=== PATIENT | female | born 1965 | race Caucasian/White ===

== ENCOUNTER 2021-08-22 18:35 | Emergency (ER) | payer MEDICAID, SELFPAY ==
[2021-08-22 18:38] VITALS: BP 159/78; PULSE 82; RESP 22; TEMP 36.7; O2SAT 96; BMI 41.1
--- NOTE | 2021-08-22 19:13 | CRLHL7_ITS ---
For Patients: As a result of the Century Cures Act, medical imaging exams and procedure reports are released immediately into your electronic medical record. You may view this report before your referring provider. If you have questions, please contact your health care provider. INDICATION: Pain left lower quadrant COMPARISON: None TECHNIQUE: CT examination of the abdomen and pelvis was performed without intravenous contrast. Thin section axial images were obtained from the lung bases through the pubic symphysis. Oral contrast was not administered. Please note that all CT scans at this facility use dose modulation, iterative reconstruction, and/or weight-based dosing when appropriate to reduce radiation dose to as low as reasonably achievable. FINDINGS: LUNG BASES: Atelectasis or scarring at the lung bases.Heart size normal and the lung bases LIVER/BILIARY SYSTEM:Enlarged fatty infiltrated liver. Sparing of the gallbladder fossa. Normal appearing gallbladder. 1.3 centimeters cyst inferiorly in the right lobe. ADRENALS: Normal non-contrast appearance KIDNEYS, URETERS and BLADDER:The kidneys are normal in size. There are no intrarenal calculi. A cyst measuring 3.2 centimeters is noted in the lower pole on the left. Mild left hydronephrosis and left hydroureter is noted. This due to a 3 millimeter calcified calculus in the mid to distal ureter located at about L4-L5. The bladder appears normal. SPLEEN:Normal non-contrast appearance. PANCREAS: Normal non-contrast appearance. RETROPERITONEUM and MESENTERY: There is no mass, adenopathy or aortic aneurysm. Atherosclerotic vascular calcifications GASTROINTESTINAL SYSTEM: There is no evidence of diverticulitis, colitis, mechanical obstruction, or appendicitis. The small bowel as visualized appears normal.Scattered diverticulosis PELVIS: No acute appearing finding. OSSEOUS STRUCTURES and ABDOMINAL WALL: Degenerative changes and scoliosis. Mild body wall edema OTHER: No free fluid or free air. IMPRESSION: 1. Left-sided obstructive uropathy due to a 3 millimeter calcified calculus in the mid to distal left ureter located at about L4-L5. No intrarenal calculi on either side. 2. Incidental nonacute appearing findings as discussed in the body of the report. Please note that all CT scans at this facility use dose modulation, iterative reconstruction, and/or weight-based dosing when appropriate to reduce radiation dose to as low as reasonably achievable. Dictated by Venancio Khoury MD @ 08/22/2021 8:44:51 PM (Electronically Signed)
[2021-08-22 19:46] VITALS: BP 126/64; PULSE 62; RESP 18; O2SAT 98
[2021-08-22] MEDS: 0.9 % SODIUM CHLORIDE 1000 ml 1,000 ML IV ×2 (19:47→21:09)
[2021-08-22] MEDS: ONDANSETRON 2 MG/ML inj 4 MG IVP (19:47)
[2021-08-22] MEDS: MORPHINE 4 MG/ML INJ IVP (19:47)
[2021-08-22 19:52] LABS: Basophils Absolute Auto 0.02 K/uL (0.00-0.30); Basophils Percent Auto 0.3 % (0.0-3.0); Eosinophils Absolute Auto 0.09 K/uL (0.00-0.50); Eosinophils Percent Auto 1.4 % (0.0-7.0); Hematocrit 39.7 % (33.0-51.0); Immature Granulocytes Abs Auto 0.01 K/uL (0.00-0.30); Mean Corpuscular HGB Conc 33 gm/dL (32-36); Mean Corpuscular Hemoglobin 29 pg (26-34); Mean Corpuscular Volume 89 fL (80-100); Monocytes Percent Auto 12.9 % (0.0-11.0); Neutrophils Percent Auto 66.2 % (42.0-72.0); Platelet Count* 154 K/uL (140-440); RDW Coefficient of Variation % 13.2 % (11.5-15.5); Red Blood Count 4.46 m/uL (4.00-5.20); White Blood Count* 6.49 K/uL (4.50-11.00)
[2021-08-22 20:00] VITALS: BP 123/69; PULSE 64; RESP 18; O2SAT 96
[2021-08-22 20:07] LABS: Albumin* 4.1 g/dL (3.3-5.0); Chloride* 105 mmol/L (96-114); Sodium* 138 mmol/L (135-149)
[2021-08-22 20:08] LABS: Potassium* 3.8 mmol/L (3.6-5.1)
[2021-08-22 20:10] LABS: Carbon Dioxide* 25 mmol/L (20-32); Est. Creatinine Clearance* 32.06; Estimated Glomerular Filt Rate 28.96
[2021-08-22 20:11] LABS: Alanine Aminotransferase* 45 U/L (4-35); Alkaline Phosphatase* 84 U/L (40-150); Aspartate Amino Transferase* 32 U/L (12-35); Bilirubin Direct* 0.5 mg/dL (0.0-0.5); Bilirubin Total* 0.8 mg/dL (0.1-1.5); Blood Urea Nitrogen* 17 mg/dL (7-30); Calcium* 8.8 mg/dL (8.4-10.6); Glucose* 111 mg/dL (60-115); Total Protein* 7.2 g/dL (6.0-8.3)
[2021-08-22 20:25] LABS: C Reactive Protein* 15.1 mg/dL (0.5-1.0)
[2021-08-22 20:30] VITALS: BP 113/62; PULSE 59; RESP 16; O2SAT 96
[2021-08-22 20:43] LABS: SARS PCR* Negative SARS-CoV-2 (Negative)
[2021-08-22 20:46] LABS: Lipase* 67 U/L (23-300)
[2021-08-22 20:57] LABS: Appearance Urine Clear (Clear); Bilirubin Urine 1+ (Negative); Blood Urine Negative (Negative); Glucose Urine Negative (Negative); Ketones Urine 1+ (Negative); Leukocyte Esterase Urine Negative (Negative); Nitrite Urine Negative (Negative); Protein Urine Negative (Negative); Specific Gravity Urine 1.025 (1.000-1.030)
[2021-08-22 20:59] LABS: Color Urine Dark Yellow (Yellow)
[2021-08-22] MEDS: KETOROLAC 15 MG/ML inj IVP (21:09)
[2021-08-22 22:30] VITALS: BP 129/76; PULSE 64; RESP 18; O2SAT 97
[2021-08-23 05:27] LABS: Slide Review Reflex No
--- NOTE | 2021-08-23 16:10 | ED.ABDPAIN ---
HPI - Abdominal Pain General Chief Complaint: Abdominal Pain Stated Complaint: Possible Bowel Obstruction Time Seen by Provider: 08/22/21 18:36 Source: patient, RN notes reviewed and old records reviewed Mode of arrival: ambulatory Limitations: no limitations History of Present Illness HPI narrative: 56-year-old woman presenting to the emergency department with complaint of abdominal pain. Four days ago was in emergency department in [facility] with a vomiting illness. Possible food ingestion. However no identifiable food apparently. Nobody else apparently sick. Reportedly x-ray was unremarkable along with normal lab evaluation. Was treated with IV fluids and antiemetics. did not notice the left mid abdominal pain which brings her here today at that time. She has not had any dysuria or frequency urgency or hematuria. Diagnosis again 4 days ago I believe was ?severe emesis and dehydration? at 1 point she does describe a little blood early on with the vomiting. This pain now involving today is throbbing. Not so much crampy. Indicates deep in the left posterior lateral abdomen. No fever. No rashes noted. Last bowel movement was 3 days ago. She was given dicyclomine and Zofran and acetaminophen -- given the pain that she is feeling now she would normally start taking acetaminophen. Would probably helpful. She would like some pain relief. In [facility] visiting colleges with her daughters. Of particular distress though appears to be some degree of abdominal distension. She says not usually like this. His indicating her mid abdomen being swollen. Surgeries positive for umbilical herniorrhaphy. Record for past medical updated. Family history is apparently without kidney stones. Related Data Previous Rx's Medication Instructions Recorded tamsulosin 0.4 mg capsule (Flomax) 0.4 mg PO DAILY #15 cap 08/22/21 Allergies Allergy/AdvReac Type Severity Reaction Status Date / Time No Known Drug Allergies Allergy Verified 08/22/21 18:54 Review of Systems Status of ROS Reports: 10 or more systems reviewed and unremarkable except as noted in History and below PFSH PFSH Medical History Hernia Hypertension Surgical History H/O cosmetic surgery History of umbilical hernia repair No significant past surgical history Social History Smoking Status: Former smoker Do you use any of these nicotine containing products: None Second hand tobacco smoke exposure: No How often do you have a drink containing alcohol: monthly or less How many standard drinks containing alcohol do you have on a typical day: 1 or 2 How often do you have six or more drinks on one occasion: Never AUDIT-C Alcohol total score: 1 Non-prescribed substance use: denies use service: No Exam Narrative: Exam Narrative: Ambulates easily into the emergency department. Appears generally a little uncomfortable. Not demonstrating tremendous pain. Subtly labored in her breathing. Skin is warm and dry. No rashes apparent. Bruise on the right upper volar forearm consistent with IV placement. HEENT-Oropharynx is a little sticky. Lungs-clear. Equal expansion excursion. Back-no flank pain. CV-RRR no MRG. A little distant. Abdomen is overweight soft. Does seem mildly distended. tender across the mid abdomen. No peritoneal signs. Tympanitic in the mid abdomen. Extremities-moving all extremities without difficulty. No edema. Well perfused peripherally. Const: Vital Signs, click to edit/add: Vital Signs - 24 hr 08/22/21 18:38 08/22/21 19:46 08/22/21 20:00 Temperature 98.1 F Pulse Rate [Pulse Oximeter] 82 62 64 Respiratory Rate 22 18 18 Blood Pressure [Ri ght Upper Arm] 159/78 H 126/64 123/69 Pulse Oximetry 96 98 96 08/22/21 20:30 08/22/21 22:30 Temperature Pulse Rate [Pulse Oximeter] 59 L 64 Respiratory Rate 16 18 Blood Pressure [Ri ght Upper Arm] 113/62 129/76 Pulse Oximetry 96 97 Documenting provider has reviewed patient's vital signs: yes Course Course Hospital Course: This appears to be new pain on top of vomiting illness. I think at this point CT imaging would be warranted. Will recheck labs. Place IV and normal saline. 4 mg of morphine. Morphine did help a good deal with her pain. Labs with CRP of 15.1 and a creatinine of 2. Urinalysis with 1+ ketones otherwise rather unremarkable though also appearance of urobilinogen/bilirubin. CT images were noncontrast reviewed by me. There is some abdominal gas consistent with physical exam though not excessive. As measured by Radiology there is a 3 mm stone in the mid left ureter. noting the ureteral stone was given further 15 mg of ketorolac along with anotherL of normal saline for a total of 2 in setting of increased creatinine Vital Signs Vital signs: Initial Vital Signs Temperature 98.1 F 08/22/21 18:38 Temperature Source Temporal Artery Scan 08/22/21 18:38 Pulse Rate 82 08/22/21 18:38 Pulse Rhythm 08/22/21 18:38 Respiratory Rate 22 08/22/21 18:38 Blood Pressure 159/78 H 08/22/21 18:38 Blood Pressure Mean 105 08/22/21 18:38 Blood Pressure Position Supine 08/22/21 18:38 Pulse Oximetry 96 08/22/21 18:38 Oxygen Delivery Method 08/22/21 18:38 Vital Signs Temperature 98.1 F 08/22/21 18:38 Pulse Rate 82 08/22/21 18:38 Respiratory Rate 22 08/22/21 18:38 Blood Pressure 159/78 H 08/22/21 18:38 Pulse Oximetry 96 08/22/21 18:38 Temperature 98.1 F 08/22/21 18:38 Pulse Rate 64 08/22/21 22:30 Respiratory Rate 18 08/22/21 22:30 Blood Pressure 129/76 08/22/21 22:30 Pulse Oximetry 97 08/22/21 22:30 MDM - Abdominal Pain MDM Narrative Medical decision making narrative: See above I do think the abdominal distension and sees appreciating is partly related to the vomiting illness which seems excessive as described to be explained by a ureteral stone alone. Dehydration likely contributing to elevated creatinine but would encourage followup and recheck next week. I think that her guts have not yet returned to normal. Sounds like might be little constipated as well. In addition to tamsulosin for ureteral colic was given prescriptions for [place] -Percocet has historically made Ms. Rogers nauseated- she does have ondansetron available but probably does not need the full 8 mg per dose as prescribed which might also be further constipating. See discharge instructions for further. Differential Diagnosis Differential diagnosis: Likely abdominal pain, calculus of kidney, constipation, diverticulitis, gastroenteritis, pancreatitis and small bowel obstruction Medical Records Attestation: I reviewed the patient's medical records. Lab Data Attestation: I reviewed the patient's lab results. Labs: Lab Results 07/04/1408/22/21 08/22/21 Range/Units 19:24 19:35 19:35 WBC 6.49 (4.50-11.00) K/uL RBC 4.46 (4.00-5.20) m/uL Hgb 13.0 (12.0-16.0) gm/dL Hct 39.7 (33.0-51.0) % MCV 89 (80-100) fL MCH 29 (26-34) pg MCHC 33 (32-36) gm/dL RDW Coeff of Lavonne 13.2 (11.5-15.5) % Plt Count 154 (140-440) K/uL Neut % (Auto) 66.2 (42.0-72.0) % Lymph % (Auto) 19.0 L (20-44) % Holt % (Auto) 12.9 H (0.0-11.0) % Eos % (Auto) 1.4 (0.0-7.0) % Baso % (Auto) 0.3 (0.0-3.0) % Neut # (Auto) 4.30 (1.7-7.0) K/uL Lymph # (Auto) 1.20 (0.90-2.90) K/uL Holt # (Auto) 0.80 (0.00-0.90) K/UL Eos # (Auto) 0.09 (0.00-0.50) K/uL Baso # (Auto) 0.02 (0.00-0.30) K/uL Abs Immat Gran (auto) 0.01 (0.00-0.30) K/uL Sodium 138 (135-149) mmol/L Potassium 3.8 (3.6-5.1) mmol/L Chloride 105 (96-114) mmol/L Carbon Dioxide 25 (20-32) mmol/L BUN 17 (7-30) mg/dL Creatinine 2.0 H (0.5-1.5) mg/dL Estimated Creat Clear 32.06 Glucose 111 (60-115) mg/dL Calcium 8.8 (8.4-10.6) mg/dL Total Bilirubin 0.8 (0.1-1.5) mg/dL Direct Bilirubin 0.5 (0.0-0.5) mg/dL AST 32 (12-35) U/L ALT 45 H (4-35) U/L Alkaline Phosphatase 84 (40-150) U/L C-Reactive Protein 15.1 H (0.5-1.0) mg/dL Total Protein 7.2 (6.0-8.3) g/dL Albumin 4.1 (3.3-5.0) g/dL Lipase 67 (23-300) U/L Urine Color (Yellow) Urine Appearance (Clear) Urine pH (5.0-8.5) Ur Specific [place] (1.000-1.030) Urine Protein (Negative) Urine Glucose (UA) (Negative) Urine Ketones (Negative) Urine Blood (Negative) Urine Nitrite (Negative) Urine Bilirubin (Negative) Urine Urobilinogen (0.2-1.0) Ur Leukocyte Esterase (Negative) SARS-CoV-2 (PCR) Negative SARS-CoV-2 (Negative) 08/22/21 Range/Units 20:50 WBC (4.50-11.00) K/uL RBC (4.00-5.20) m/uL Hgb (12.0-16.0) gm/dL Hct (33.0-51.0) % MCV (80-100) fL MCH (26-34) pg MCHC (32-36) gm/dL RDW Coeff of Lavonne (11.5-15.5) % Plt Count (140-440) K/uL Neut % (Auto) (42.0-72.0) % Lymph % (Auto) (20-44) % Holt % (Auto) (0.0-11.0) % Eos % (Auto) (0.0-7.0) % Baso % (Auto) (0.0-3.0) % Neut # (Auto) (1.7-7.0) K/uL Lymph # (Auto) (0.90-2.90) K/uL Holt # (Auto) (0.00-0.90) K/UL Eos # (Auto) (0.00-0.50) K/uL Baso # (Auto) (0.00-0.30) K/uL Abs Immat Gran (auto) (0.00-0.30) K/uL Sodium (135-149) mmol/L Potassium (3.6-5.1) mmol/L Chloride (96-114) mmol/L Carbon Dioxide (20-32) mmol/L BUN (7-30) mg/dL Creatinine (0.5-1.5) mg/dL Estimated Creat Clear Glucose (60-115) mg/dL Calcium (8.4-10.6) mg/dL Total Bilirubin (0.1-1.5) mg/dL Direct Bilirubin (0.0-0.5) mg/dL AST (12-35) U/L ALT (4-35) U/L Alkaline Phosphatase (40-150) U/L C-Reactive Protein (0.5-1.0) mg/dL Total Protein (6.0-8.3) g/dL Albumin (3.3-5.0) g/dL Lipase (23-300) U/L Urine Color Dark Yellow (Yellow) Urine Appearance Clear (Clear) Urine pH 6.0 (5.0-8.5) Ur Specific [place] 1.025 (1.000-1.030) Urine Protein Negative (Negative) Urine Glucose (UA) Negative (Negative) Urine Ketones 1+ A (Negative) Urine Blood Negative (Negative) Urine Nitrite Negative (Negative) Urine Bilirubin 1+ A (Negative) Urine Urobilinogen 4.0 (0.2-1.0) Ur Leukocyte Esterase Negative (Negative) SARS-CoV-2 (PCR) (Negative) Imaging Data CT scan - abdomen: Attestation: I have reviewed the pertinent imaging results. My impression: See above Radiologist's impression: [place] [address] Diagnostic Imaging Report Patient: Isabella Rogers MR#: [id number] : 1965 Acct:[id number] Loc: ED Service Date: 08/22/[address]: Ordering Physician: Corona Sr MD Date of Service: 08/22/21 Procedure(s): CT abdomen pelvis wo con Accession Number(s): [id number] cc: Margo Mcfadden PA-C; Corona Sr MD~ For Patients:? As a result of the Cures Act, medical imaging exams and procedure reports are released immediately into your electronic medical record.? You may view this report before your referring provider.? If you have questions, please contact your health care provider. INDICATION: Pain left lower quadrant COMPARISON: None TECHNIQUE: CT examination of the abdomen and pelvis was performed without intravenous contrast. Thin section axial images were obtained from the lung bases through the pubic symphysis. Oral contrast was not administered.? Please note that all CT scans at this facility use dose modulation, iterative reconstruction, and/or weight-based dosing when appropriate to reduce radiation dose to as low as reasonably achievable. FINDINGS: LUNG BASES: Atelectasis or scarring at the lung bases.Heart size normal and the lung bases LIVER/BILIARY SYSTEM:Enlarged fatty infiltrated liver. Sparing of the gallbladder fossa. Normal appearing gallbladder. 1.3 centimeters cyst inferiorly in the right lobe. ADRENALS: Normal non-contrast appearance KIDNEYS, URETERS and BLADDER:The kidneys are normal in size. There are no intrarenal calculi. A cyst measuring 3.2 centimeters is noted in the lower pole on the left. Mild left hydronephrosis and left hydroureter is noted. This due to a 3 millimeter calcified calculus in the mid to distal ureter located at about L4-L5. The bladder appears normal. SPLEEN:Normal non-contrast appearance. PANCREAS: Normal non-contrast appearance. RETROPERITONEUM and MESENTERY: There is no mass, adenopathy or aortic aneurysm. Atherosclerotic vascular calcifications GASTROINTESTINAL SYSTEM: There is no evidence of diverticulitis, colitis, mechanical obstruction, or appendicitis. The small bowel as visualized appears normal.Scattered diverticulosis PELVIS: No acute appearing finding. OSSEOUS STRUCTURES and ABDOMINAL WALL: Degenerative changes and scoliosis.? Mild body wall edema OTHER: No free fluid or free air. IMPRESSION: 1. Left-sided obstructive uropathy due to a 3 millimeter calcified calculus in the mid to distal left ureter located at about L4-L5. No intrarenal calculi on either side. 2. Incidental nonacute appearing findings as discussed in the body of the report. Please note that all CT scans at this facility use dose modulation, iterative reconstruction, and/or weight-based dosing when appropriate to reduce radiation dose to as low as reasonably achievable. Dictated by Venancio Khoury MD @ 08/22/2021 8:44:51 PM Discharge Plan Discharge Clinical Impression: Acute kidney injury, Ureter colic, Nephrolithiasis, Dehydration Patient Disposition: Home w/ Parent or Adult Condition: Improved Additional Instructions: continue to stay hydrated with an sugared beverages, especially water. Strain your urine over this next week. Follow up in 4-5 days if pain not improving; sooner if pain escalating uncontrolled. Be seen for associated fever, repeated vomiting related to pain in particular. You might be further helped by drinking 1/2-1 bottle of Mag citrate if you believe you are significantly constipated. If having hard stools an enema could be placed and repeated in our to no significant result. if needing year opiates for pain management, take daily to twice daily senna product. might want to take probiotics or BioGest digestive enzymes or similar as you try to get over this vomiting illness you appear to have had. Can take up to 800 mg of ibuprofen per dose. If the [place] is contributing to some nausea, take lowest effective dose and/or might pre-treat with diphenhydramine or Zofran. I think it would also be a good idea to follow up in a week where you can recheck your labs particularly with reference to your kidneys. Prescriptions: New tamsulosin [Flomax] 0.4 mg capsule 0.4 mg PO DAILY Qty: 15 0RF Follow Up/Referrals: Margo Mcfadden PA-C [Primary Care Provider] - Stand Alone Forms: [employer] Info Instructions
== END 2021-08-22 22:43 ==
PROVIDERS: Emergency Provider Family Medicine; PCP Physician Assistant Medical
DX: N20.2 Calculus of kidney with calculus of ureter (principal); N17.9 Acute kidney failure, unspecified
CPT/HCPCS: 96374; 96375; 36415; 74176; 80048; 80076; 81003; 83690; 85025; 86140; 87635; 99283; 99284; 99285; J1885; J2270; J2405; J7030

== ENCOUNTER 2021-08-24 23:09 | Emergency (ER) | payer MEDICAID, SELFPAY ==
[2021-08-24 23:35] VITALS: BP 154/85; PULSE 68; RESP 18; TEMP 37.3; O2SAT 94; BMI 41.1
--- NOTE | 2021-08-25 00:45 | ED.NURSE ---
Pt states feeling improved, has pleasant demeanor, leaves ER AMA
== END 2021-08-25 00:45 | disposition home or self-care (01) ==
LOC: ED 08-25 00:41
PROVIDERS: Emergency Provider Internal Medicine; PCP Physician Assistant Medical
DX: Z53.8 Procedure and treatment not carried out for other reasons (principal)
CPT/HCPCS: 99281; 80048; 85025

== ENCOUNTER 2023-01-30 08:31 | Outpatient (REF) | payer MEDICAID, SELFPAY | END 2023-01-30 08:32 | disposition home or self-care (01) | LOC: NFLDREF 08:31 | PROVIDERS: PCP Physician Assistant Medical; Referring Provider Physician Assistant Medical; Visit Provider Physician Assistant | DX: R30.0 Dysuria (principal); N39.0 Urinary tract infection, site not specified | CPT/HCPCS: 87086; 87186 ==

== ENCOUNTER 2023-07-14 20:46 | Emergency (ER) | payer OTHER, SELFPAY ==
[2023-07-14 20:55] VITALS: BP 151/92; PULSE 92; RESP 18; TEMP 36.8; O2SAT 100; BMI 35.0
--- NOTE | 2023-07-14 21:01 | CRLHL7_ITS ---
For Patients: As a result of the Century Cures Act, medical imaging exams and procedure reports are released immediately into your electronic medical record. You may view this report before your referring provider. If you have questions, please contact your health care provider. INDICATION: Leg pain and swelling TECHNIQUE: Ultrasound venous duplex lower left extremity. Compression venous exam was performed using flores-scale, color Doppler, and spectral Doppler imaging. COMPARISON: None. FINDINGS: Left lower extremity: Common femoral vein: Patent and compressible. Greater saphenous vein: Patent. Deep femoral vein: Patent. Femoral vein: Patent and compressible. Popliteal vein: Patent and compressible. Posterior tibial vein: Patent and compressible. Peroneal vein: Patent and compressible. Contralateral right common femoral vein: Patent and compressible. IMPRESSION: No evidence of acute deep venous thrombosis in the left lower extremity. Dictated by Ubaldo Abernathy MD @ 07/14/2023 10:13:06 PM (Electronically Signed)
--- NOTE | 2023-07-14 21:42 | PC.NURSE ---
Pt states yesterday she had N/V and maybe some chills. Today she woke up feeling better, denies N/V today but noticed when she woke up that her left leg was swollen and has large area in front of lower leg that is red/warm/painful. Denies any injuries. Painful to bear weight, ambulate.
--- NOTE | 2023-07-14 21:49 | ED_ITS ---
HPI - General Adult General Chief complaint: Lower Extremity Swelling Stated complaint: L leg swollen Time Seen by Provider: 07/14/23 20:59 History of Present Illness HPI narrative: This 58-year-old female comes in with redness and mild swelling on the left lower extremity on the anterior aspect extending from her ankle [address] her knee[address] It is not circumferential. She does not report any injury event or fevers. She states that she felt some generalized malaise yesterday. She comes in with some concern about possible blood clot. There is no report of any previous blood clot and she is otherwise been healthy. Related Data Home Medications ?Medication ?Instructions ?Recorded ?Confirmed semaglutide (weight loss) 1 mg/0.5 mg subcut 08/19/22 01/30/23 mL subcutaneous pen injector ([employer]) Allergies Allergy/AdvReac Type Severity Reaction Status Date / Time No Known Drug Allergies Allergy Verified 01/30/23 08:42 Review of Systems Status of ROS: Reports: 10 or more systems reviewed and unremarkable except as noted in History and below Narrative: Constitutional: No fevers, no weight gain or loss. Eyes: No discharge. No vision changes. HENT: No congestion, no sore throat, no ear pain. Cardiovascular: No chest pain, no palpitations. Respiratory: No shortness of breath, no wheezes, no cough. Gastrointestinal: No abdominal pain, no vomiting, no diarrhea. Genitourinary: No dysuria, no hematuria. Musculoskeletal: Normal range of motion. Skin: No rashes, no pruritis. Neurological: No dizziness, weakness, sensory change, speech change. Endo/Heme/Allergies: No bruising or bleeding. No polydipsia. Pysch: no suicidality, no anxiety, no insomnia. All other systems reviewed and are negative. [facility] Medical History Stye external ?H00.019 - Hordeolum externum unspecified eye, unspecified eyelid (ICD-10) Hernia ?K46.9 - Unspecified abdominal hernia without obstruction or gangrene (ICD- 10) Hypertension ?I10 - Essential (primary) hypertension (ICD-10) Surgical History H/O cosmetic surgery ?Z98.890 - Other specified postprocedural states (ICD-10) History of umbilical hernia repair ?Z98.890 - Other specified postprocedural states (ICD-10) ?Z87.19 - Personal history of other diseases of the digestive system (ICD-10) No significant past surgical history Social History Smoking Status: Former smoker Do you use any of these nicotine containing products: None Second hand tobacco smoke exposure: No How often do you have a drink containing alcohol: monthly or less How many standard drinks containing alcohol do you have on a typical day: 1 or 2 How often do you have six or more drinks on one occasion: Never AUDIT-C Alcohol total score: 1 Non-prescribed substance use: denies use service: No Exam 2 Narrative: Exam Narrative: Constitutional: Well-developed, well-nourished, no acute distress. HEENT: Normocephalic, atraumatic. Neck: Normal range of motion. Nontender. Supple. Heart: Intact distal pulses. Lungs: No chest discomfort. No wheezes, rhonchi, or rales. Abdomen: Nontender. Back: Normal range of motion. Extremities: Normal range of motion. Erythema with increased warmth and very mild swelling on the anterior aspect of her left lower extremity extending from about the ankle to fci or so toward her knee. Skin: Intact. No rash. Warm. No erythema or pallor. Neurologic: No altered sensation. No weakness. Alert and oriented. Psychiatric: No suicidality. No anxiety or depression. No insomnia. Nursing notes and vitals signs are reviewed. Const: Vital Signs, click to edit/add: Vital Signs - 24 hr 07/14/23 20:55 Temperature 98.2 F Pulse Rate [Pulse Oximeter] 92 Respiratory Rate 18 Blood Pressure [Ri ght Upper Arm] 151/92 H Pulse Oximetry 100 Oxygen Delivery Me thod Room Air Course Vital Signs Vital signs: Initial Vital Signs Temperature 98.2 F 07/14/23 20:55 Temperature Source Temporal Artery Scan 07/14/23 20:55 Pulse Rate 92 07/14/23 20:55 Pulse Rhythm Regular 07/14/23 20:55 Respiratory Rate 18 07/14/23 20:55 Blood Pressure 151/92 H 07/14/23 20:55 Blood Pressure Mean 111 H 07/14/23 20:55 Blood Pressure Position Supine 07/14/23 20:55 Pulse Oximetry 100 07/14/23 20:55 Oxygen Delivery Method Room Air 07/14/23 20:55 Vital Signs Temperature 98.2 F 07/14/23 20:55 Pulse Rate 92 07/14/23 20:55 Respiratory Rate 18 07/14/23 20:55 Blood Pressure 151/92 H 07/14/23 20:55 Pulse Oximetry 100 07/14/23 20:55 Oxygen Delivery Method Room Air 07/14/23 20:55 Temperature 98.2 F 07/14/23 20:55 Pulse Rate 92 07/14/23 20:55 Respiratory Rate 18 07/14/23 20:55 Blood Pressure 151/92 H 07/14/23 20:55 Pulse Oximetry 100 07/14/23 20:55 Oxygen Delivery Method Room Air 07/14/23 20:55 Medical Decision Making MDM Narrative Medical decision making narrative: This patient comes in with symptoms typical of a cellulitis. She comes in with a concern that she may have swelling due to a blood clot. An ultrasound was therefore obtained which is negative for thrombus. Her symptoms are very typical of a cellulitis that appears to be uncomplicated. She received a prescription for Keflex. I advised her regarding signs and symptoms that would indicate a need for return and re-evaluation. Discharge Plan Discharge Clinical Impression: Cellulitis Patient Disposition: Home, Self-Care Condition: Stable Additional Instructions: Take medication as prescribed. Use [id number] medicines also as needed and directed. Follow up with MD or return if symptoms are worsening. Prescriptions: No Action Wegovy 1 mg/0.5 mL pen injector subcut Follow Up/Referrals: Margo Mcfadden PA-C [Primary Care Provider] - Stand Alone Forms: [employer] Info Instructions
== END 2023-07-14 22:04 | disposition home or self-care (01) ==
PROVIDERS: Emergency Provider Emergency Medicine Emergency Medical Services; PCP Family Medicine
DX: L03.116 Cellulitis of left lower limb (principal)
CPT/HCPCS: 93971; 99283; 99284